=== PATIENT | female | born 1945 | race Caucasian/White ===

== ENCOUNTER 2020-09-01 10:07 | Outpatient (REF) | payer MEDICARE, OTHER, SELFPAY ==
--- NOTE | 2020-09-01 10:17 | MM_ITS ---
EXAMINATION: MM SCREENING DIGITAL BREAST TOMOSYNTHESIS, BILATERAL CLINICAL INFORMATION: Screening. Asymptomatic. The lifetime risk of breast cancer based on the Tyrer-Cuzick Model is 3%. COMPARISON: Mammography: 08/27/2019, 08/02/2018, 06/08/2016 TECHNIQUE: Digital breast tomosynthesis is performed in both the craniocaudal and mediolateral oblique views along with computer-aided detection (CAD). Synthesized 2D images are generated from the tomosynthesis. FINDINGS: There are scattered areas of fibroglandular density (ACR BI-RADS breast composition Category b). There are no significant masses, abnormal calcifications, or other abnormalities. Parenchymal pattern is similar to prior studies. The axilla and skin contours are unremarkable. MM/MM tomosynthesis screening BI IMPRESSION: No significant changes from prior studies. ASSESSMENT: BI-RADS 1: Negative RECOMMENDATION: Routine annual mammography screening. This patient's information was entered into a reminder system with a target due date for their next mammogram.
== END 2020-09-01 10:08 | disposition home or self-care (01) ==
LOC: HO.MAMMO 10:07
PROVIDERS: PCP Internal Medicine; Visit Provider Internal Medicine
DX: Z12.31 Encounter for screening mammogram for malignant neoplasm of breast (principal)
CPT/HCPCS: 77063; 77067

== ENCOUNTER 2020-10-29 09:27 | Outpatient (REF) | payer MEDICARE, OTHER, SELFPAY ==
--- NOTE | 2020-10-29 09:39 | MM_ITS ---
EXAMINATION: BONE DENSITOMETRY CLINICAL INDICATION: Menopausal female climacteric states. COMPARISON: This is the patient's baseline examination. TECHNIQUE: Using a [employer] Cardio DXA System (software version: 13.1) manufactured by [employer], dual-energy x-ray absorptiometry was performed of the lumbar spine and left hip. The images are of good technical quality. Summary results are attached. FINDINGS: AP SPINE L1-L2 (excluding L3 and L4): The data of L1-L4 has been changed to exclude the L3 and L4 vertebral bodies, because degenerative sclerosis at these levels may cause overestimation of lumbar spine density. BMD 0.749 g/cm2, Z-score -1.7, T-score -3.5, osteoporosis. LEFT FEMUR, NECK: BMD 0.908 g/cm2, Z-score 1.0, T-score -0.9, normal. LEFT FEMUR, TOTAL: BMD 0.873 g/cm2, Z-score 0.7, T-score -1.1, osteopenia. IDENTIFIED RISK FACTORS: Height loss, menopause. HISTORY OF FRACTURE: None listed. MEDICATIONS: Calcium supplements or multivitamin. MM/XR DEXA axial skeleton IMPRESSION: 1. DIAGNOSIS: Osteoporosis based on the lowest T-score value of -3.5 in the lumbar spine applying World Health Organization criteria. 2. 10-YEAR FRACTURE RISK PREDICTION, FRAX: Major osteoporotic fracture (clinical spine, forearm, hip or shoulder) 9.7%. Hip fracture 1.5%. 3. Treatment Recommendations: NOF guidelines recommend consideration for treatment in postmenopausal women and men age 50 and older presenting with the following: -A hip or vertebral (clinical or morphometric) fracture. -T-score less than or equal to -2.5 at the femoral neck or spine after appropriate evaluation to exclude secondary causes. -Low bone mass at the hip or spine and a 10-year fracture probability by FRAX of greater than or equal to 3% for hip fracture or greater than or equal to 20% for major osteoporotic fracture based on the [place] adapted WHO algorithm. 4. Other Recommendations: All treatment decisions require clinical judgment and consideration of individual patient factors, including patient preferences, comorbidities, previous drug use, risk factors not captured in the FRAX model (e.g. frailty, falls, vitamin D deficiency, increased bone turnover, interval significant decline in bone density) and possible under or overestimation of fracture risk by FRAX. Additional medical evaluation for secondary cause of low bone mineral density may be appropriate. FUTURE SCAN RECOMMENDATION: People with diagnosed cases of osteoporosis or at high risk for fracture should have regular bone mineral density tests. For patients eligible for Medicare, routine testing is allowed once every 2 years. The testing frequency can be increased to one year for patients who have rapidly progressing disease, those who are receiving or discontinuing medical therapy to restore bone mass, or have additional risk factors.
== END 2020-10-29 09:28 | disposition home or self-care (01) ==
LOC: HO.MAMMO 09:27
PROVIDERS: Visit Provider Registered Nurse
DX: M81.0 Age-related osteoporosis without current pathological fracture (principal)
CPT/HCPCS: 77080

== ENCOUNTER 2021-10-07 10:10 | Outpatient (REF) | payer MEDICARE, OTHER, SELFPAY ==
--- NOTE | ~2021-10-07 | MM_ITS ---
EXAMINATION: MM SCREENING DIGITAL BREAST TOMOSYNTHESIS, BILATERAL CLINICAL INFORMATION: Screening. Asymptomatic. The lifetime risk of breast cancer based on the Tyrer-Cuzick Model is 3%. COMPARISON: Mammography: September 01, 2020 and studies dating back to October 15, 2012 TECHNIQUE: Digital breast tomosynthesis is performed in both the craniocaudal and mediolateral oblique views along with computer-aided detection (CAD). Synthesized 2D images are generated from the tomosynthesis. FINDINGS: There are scattered areas of fibroglandular density (ACR BI-RADS breast composition Category b). There are no significant masses, abnormal calcifications, or other abnormalities. MM/MM tomosynthesis screening BI IMPRESSION: There are no significant changes from prior study. ASSESSMENT: BI-RADS 1: Negative RECOMMENDATION: Routine annual mammography screening. This patient's information was entered into a reminder system with a target due date for their next mammogram.
== END 2021-10-07 10:11 | disposition home or self-care (01) ==
LOC: HO.MAMMO 10:10
PROVIDERS: PCP Registered Nurse; Visit Provider Registered Nurse
DX: Z12.31 Encounter for screening mammogram for malignant neoplasm of breast (principal)
CPT/HCPCS: 77063; 77067

== ENCOUNTER 2022-10-11 09:20 | Outpatient (REF) | payer MEDICARE, OTHER, SELFPAY ==
--- NOTE | ~2022-10-11 | MM_ITS ---
EXAMINATION: MM SCREENING DIGITAL BREAST TOMOSYNTHESIS, BILATERAL CLINICAL INFORMATION: Screening. Asymptomatic. The lifetime risk of breast cancer based on the Tyrer-Cuzick Model is 3%. COMPARISON: Mammography: 10/07/2021 and studies dating back to 07/26/2010 TECHNIQUE: Digital breast tomosynthesis is performed in both the craniocaudal and mediolateral oblique views along with computer-aided detection (CAD). Synthesized 2D images are generated from the tomosynthesis. FINDINGS: There are scattered areas of fibroglandular density (ACR BI-RADS breast composition Category b). There is a stable parenchymal pattern to the left breast with no new abnormal dominant mass. Within the central right breast on craniocaudal view this asymmetric density which shows stability for greater than 2 years. No new abnormal dominant mass or suspicious grouping of microcalcifications is identified. MM/MM tomosynthesis screening BI IMPRESSION: No significant changes from prior exam. ASSESSMENT: BI-RADS 2: Benign RECOMMENDATION: Routine annual mammography screening. This patient's information was entered into a reminder system with a target due date for their next mammogram.
== END 2022-10-11 09:21 | disposition home or self-care (01) ==
LOC: HO.MAMMO 09:20
PROVIDERS: PCP Registered Nurse; Visit Provider Registered Nurse
DX: Z12.31 Encounter for screening mammogram for malignant neoplasm of breast (principal)
CPT/HCPCS: 77063; 77067

== ENCOUNTER 2023-10-13 09:07 | Outpatient (REF) | payer MEDICARE, OTHER, SELFPAY | END 2023-10-13 09:08 | disposition home or self-care (01) | LOC: HO.MAMMO 09:07 | PROVIDERS: PCP Pediatrics; Visit Provider Registered Nurse | DX: Z12.31 Encounter for screening mammogram for malignant neoplasm of breast (principal) | CPT/HCPCS: 77063; 77067 ==

== ENCOUNTER → 2023-10-13 09:30 | Outpatient (BNV) | payer MEDICARE, OTHER, SELFPAY | PROVIDERS: PCP Pediatrics; Visit Provider Radiology Diagnostic Radiology | DX: Z12.31 Encounter for screening mammogram for malignant neoplasm of breast (principal) | CPT/HCPCS: 77063; 77067 ==

== ENCOUNTER 2023-11-24 09:47 | Outpatient (REF) | payer MEDICARE, OTHER, SELFPAY ==
--- NOTE | ~2023-11-24 | MM_ITS ---
EXAMINATION: BONE DENSITOMETRY CLINICAL INDICATION: Age-related osteoporosis without current pathological fracture. COMPARISON: Baseline BD dated 10/29/2020. TECHNIQUE: Using a [employer] DXA System (software version: 13.1) manufactured by [employer], dual-energy x-ray absorptiometry was performed of the lumbar spine and left hip. The images are of good technical quality. Summary results are attached. FINDINGS: LEFT FEMUR, NECK: Current: BMD 0.904 g/cm2, Z-score 1.1, T-score -1.0, normal. Baseline: BMD 0.908 g/cm2. LEFT FEMUR, TOTAL: Current: BMD 0.807 g/cm2, Z-score 0.4, T-score -1.6, osteopenia, 7.6% decrease from baseline (<5% change is not significant). Baseline: BMD 0.873 g/cm2. AP SPINE L1-L2 (excluding L3 and L4): The data of L1-L4 has been changed to exclude the L3 and L4 vertebral bodies, because degenerative sclerosis at these levels may cause overestimation of lumbar spine density. Current: BMD 0.696 g/cm2, Z-score -2.0, T-score -3.9, osteoporosis, 7.1% decrease from baseline (<5% change is not significant). Baseline: BMD 0.749 g/cm2. IDENTIFIED RISK FACTORS: Menopause, height loss. HISTORY OF FRACTURE: None listed. MEDICATIONS: Calcium supplements or multivitamin, vitamin D. MM/XR DEXA axial skeleton IMPRESSION: 1. DIAGNOSIS: Osteoporosis based on the lowest T-score value of -3.9 in the lumbar spine applying World Health Organization criteria. 2. 10-YEAR FRACTURE RISK PREDICTION, FRAX: According to the guidelines, FRAX calculation should only be performed on patients in the osteopenia bone density category. Therefore, FRAX was not performed on this patient. 3. Treatment Recommendations: NOF guidelines recommend consideration for treatment in postmenopausal women and men age 50 and older presenting with the following: -A hip or vertebral (clinical or morphometric) fracture. -T-score less than or equal to -2.5 at the femoral neck or spine after appropriate evaluation to exclude secondary causes. -Low bone mass at the hip or spine and a 10-year fracture probability by FRAX of greater than or equal to 3% for hip fracture or greater than or equal to 20% for major osteoporotic fracture based on the [place] adapted WHO algorithm. 4. Other Recommendations: All treatment decisions require clinical judgment and consideration of individual patient factors, including patient preferences, comorbidities, previous drug use, risk factors not captured in the FRAX model (e.g. frailty, falls, vitamin D deficiency, increased bone turnover, interval significant decline in bone density) and possible under or overestimation of fracture risk by FRAX. Additional medical evaluation for secondary cause of low bone mineral density may be appropriate. FUTURE SCAN RECOMMENDATION: People with diagnosed cases of osteoporosis or at high risk for fracture should have regular bone mineral density tests. For patients eligible for Medicare, routine testing is allowed once every 2 years. The testing frequency can be increased to one year for patients who have rapidly progressing disease, those who are receiving or discontinuing medical therapy to restore bone mass, or have additional risk factors.
== END 2023-11-24 09:48 | disposition home or self-care (01) ==
LOC: HO.MAMMO 09:47
PROVIDERS: PCP Pediatrics; Visit Provider Pediatrics
DX: Z13.820 Encounter for screening for osteoporosis (principal); M81.0 Age-related osteoporosis without current pathological fracture; Z78.0 Asymptomatic menopausal state
CPT/HCPCS: 77080

== ENCOUNTER 2024-10-28 08:44 | Outpatient (REF) | payer MEDICARE, OTHER, SELFPAY ==
--- NOTE | ~2024-10-28 | MM_ITS ---
EXAMINATION: MM SCREENING DIGITAL BREAST TOMOSYNTHESIS, BILATERAL CLINICAL INFORMATION: Screening. Asymptomatic. COMPARISON: Mammography: Comparison is made with available priors TECHNIQUE: Digital breast mammography with tomosynthesis is performed in both the craniocaudal and mediolateral oblique views along with computer-aided detection (CAD). FINDINGS: There are scattered areas of fibroglandular density (ACR BI-RADS breast composition Category b). There are no significant masses, abnormal calcifications, or other abnormalities. MM/MM tomosynthesis screening BI IMPRESSION: No mammographic evidence of malignancy. ASSESSMENT: BI-RADS BI-RADS 1 - Negative RECOMMENDATION: Routine annual mammography screening. 1 year F/U This examination should not preclude the clinical evaluation of a suspicious palpable abnormality. This patient's information was entered into a reminder system with a target due date for their next mammogram. Electronically signed by: Brenda Guillen DO 11/03/2024 05:53 PM KORIN
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
== END 2024-10-28 08:45 | disposition home or self-care (01) ==
LOC: HO.MAMMO 08:44
PROVIDERS: PCP Pediatrics; Visit Provider Pediatrics
DX: Z12.31 Encounter for screening mammogram for malignant neoplasm of breast (principal)
CPT/HCPCS: 77063; 77067

== ENCOUNTER → 2024-10-28 09:00 | Outpatient (BNV) | payer MEDICARE, OTHER, SELFPAY | PROVIDERS: PCP Pediatrics; Visit Provider Internal Medicine | DX: Z12.31 Encounter for screening mammogram for malignant neoplasm of breast (principal) | CPT/HCPCS: 77063; 77067 ==

== ENCOUNTER 2024-11-01 09:28 | Outpatient (AMB) | payer MEDICARE, OTHER, SELFPAY ==
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
[2024-11-01 09:52] VITALS: BMI 25.0
== END 2024-11-01 10:11 | disposition home or self-care (01) ==
PROVIDERS: PCP Pediatrics
DX: S52.501A Unspecified fracture of the lower end of right radius, initial encounter for closed fracture (principal)
CPT/HCPCS: 99203

== ENCOUNTER 2024-11-01 09:28 | Outpatient (REF) | payer MEDICARE, OTHER, SELFPAY ==
--- NOTE | ~2024-11-01 | XR_ITS ---
CLINICAL HISTORY: M25.531 - Pain in right wrist 3 view right wrist Comparison: None Findings: Bones intact. No dislocations. There may be a remote impaction fracture of the distal radius. No significant arthritic change or erosions. No radiopaque foreign body. IMPRESSION: 1. No acute findings This document has been electronically signed by: Chriss Lynch MD on 11/04/2024 12:14:36
== END 2024-11-01 09:29 | disposition home or self-care (01) ==
LOC: HO.HOSX 09:28
PROVIDERS: PCP Pediatrics
DX: M25.531 Pain in right wrist (principal); S52.501D Unspecified fracture of the lower end of right radius, subsequent encounter for closed fracture with routine healing
CPT/HCPCS: 73110; 99202

== ENCOUNTER 2024-11-08 08:21 | Outpatient (REF) | payer MEDICARE, OTHER, SELFPAY ==
--- NOTE | ~2024-11-08 | XR_ITS ---
EXAMINATION: XR WRIST 3 OR MORE VIEWS RIGHT HISTORY: M25.531 - Pain in right wrist COMPARISON: Comparison is made with the prior examination dated 11/01/2024. FINDINGS: Three views of the right wrist are submitted. The bones are osteopenic. Again seen is a transverse fracture of the radial metaphysis. Fracture line is less well visualized, consistent with healing. The joint spaces are preserved. The soft tissues are unremarkable. XR/XR wrist RT min 3V IMPRESSION: Healing transverse fracture of the distal radius. Electronically signed by: Aleksandar Sargent MD 11/11/2024 10:45 AM KORIN
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
== END 2024-11-08 08:22 | disposition home or self-care (01) ==
LOC: HO.HOSX 08:21
DX: M25.531 Pain in right wrist (principal); S52.501A Unspecified fracture of the lower end of right radius, initial encounter for closed fracture
CPT/HCPCS: 73110; 99212

== ENCOUNTER 2024-11-08 09:22 | Outpatient (AMB) | payer MEDICARE, OTHER, SELFPAY ==
--- NOTE | 2024-11-08 09:32 | A.OFFVIS_ITS ---
Vital Signs 11/08/24 09:37 Height 5 ft 5 in Weight 150 lb BMI 25.0 Intake Visit Reasons: OV RT distal radius fx DOI 10/11/24 Intake Note: Aziza is a 79 year old right hand dominant female who presents today for follow up status post right distal radius fracture, DOI: 10/11/2024. Patient reports he wrist feels pretty good. She expresses certain spots have some discomfort where her fracture was that lets her know it is still there. She says this happens randomly and is unable to say exactly what causes the discomfort. Allergies No Known Allergies Allergy (Verified 11/08/24 09:36) HPI HPI OV RT distal radius fx DOI 10/11/24: Details: Aziza is a 79 year old right hand dominant female who presents today for follow up status post right distal radius fracture, DOI: 10/11/2024. Patient reports he wrist feels pretty good. She expresses certain spots have some discomfort where her fracture was that lets her know it is still there. She says this happens randomly and is unable to say exactly what causes the discomfort. [facility] Social History Patient Tobacco Use Status: Former Tobacco user Current occupational status: retired Current occupation: rt hand Review of Systems Const All systems reviewed & are unremarkable except as noted in HPI and below Physical Exam Vital Signs: BMI result Body Mass Index 25.0 Extrem Other: Patient is alert, oriented, and in no acute distress. Neuro: Normal sensation of the tips of all digits of the right hand at this time Vascular: Cap refill brisk Pain: No tenderness to palpation about the right wrist No pain in the right wrist with range of motion of the right hand ROM: Patient is able to make a closed fist and extend all digits of the right hand fully and without difficulty Skin: No lacerations or abrasions. General: No ecchymosis, erythema, or evidence of infection. Psych: Appears grossly normal Affect normal Attitude cooperative Results Reviewed Results Reviewed: X-rays obtained in the office today and independently reviewed by me, Paulie Pepe PA-C, demonstrate minimally displaced fracture of the right distal radius with evidence of interval bony healing. Assessment & Plan Assessment & Plan (1) Distal radius fracture, right: Code(s): S52.501A - Unspecified fracture of the lower end of right radius, initial encounter for closed fracture Category: Medical Plan 1. Minimally displaced right distal radius fracture Date of injury 10/11/2024 Patient appears to be recovering well from her injury Patient is educated about the typical recovery course At this time, patient was informed that she no longer needs to wear her Velcro wrist splint like a cast, and only needs to wear it with daytime activities. Patient is educated that when at home and relaxing, she can remove herself from the splint and work on range of motion of the right hand and wrist Patient is educated that she will likely require a referral to occupational therapy if she is still experiencing any decreased range of motion at next visit Patient was amenable to this plan Patient will follow-up in 4 weeks with repeat x-rays, sooner with any acute concerns Orders: Orders XR wrist RT min 3V Today M25.531 - Pain in right wrist Coding Level of Care Code Global (64407) Diagnoses Distal radius fracture, right S52.501A
[2024-11-08 09:37] VITALS: BMI 25.0
== END 2024-11-08 09:55 | disposition home or self-care (01) ==
PROVIDERS: PCP Pediatrics
DX: S52.501D Unspecified fracture of the lower end of right radius, subsequent encounter for closed fracture with routine healing (principal)
CPT/HCPCS: 99213

== ENCOUNTER 2024-12-06 08:20 | Outpatient (REF) | payer MEDICARE, OTHER, SELFPAY ==
--- NOTE | ~2024-12-06 | XR_ITS ---
EXAMINATION: XR WRIST 3 OR MORE VIEWS RIGHT HISTORY: M25.531 - Pain in right wrist COMPARISON: Comparison is made with the prior examination dated 11/08/2024. FINDINGS: Three views of the right wrist are submitted. Osseous mineralization is normal. Again seen is a transverse fracture of the distal radial metaphysis. There is slightly greater sclerosis on the current study and the fracture line is slightly less well visualized, consistent with healing. The joint spaces are preserved. The soft tissues are unremarkable. XR/XR wrist RT min 3V IMPRESSION: Healing transverse fracture of the distal radius. Electronically signed by: Aleksandar Sargent MD 12/06/2024 09:36 AM EST
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
== END 2024-12-06 08:21 | disposition home or self-care (01) ==
LOC: HO.HOSX 08:20
DX: S52.501D Unspecified fracture of the lower end of right radius, subsequent encounter for closed fracture with routine healing (principal)
CPT/HCPCS: 73110

== ENCOUNTER 2024-12-06 09:21 | Outpatient (AMB) | payer MEDICARE, OTHER, SELFPAY ==
--- NOTE | 2024-12-06 09:27 | MHC.OFFVIS ---
Intake Visit Reasons: RTdistal radius fx DOI 10/11/24-w/xray ROM check Intake Note: Aziza is a 79 year old right hand dominant female who presents today for a post operative range of motion check s/p right distal radius fracture, DOI: 10/11/2024. At her last visit she was placed in a Velcro wrist brace and instructed to remove for ROM exercises. Patient reports she is doing well, taking Aleve occasionally for pain. Allergies No Known Allergies Allergy (Verified 11/08/24 09:36) HPI HPI RTdistal radius fx DOI 10/11/24-w/xray ROM check: Details: Aziza is a 79 year old right hand dominant female who presents today for a post operative range of motion check s/p right distal radius fracture, DOI: 10/11/2024. At her last visit she was placed in a Velcro wrist brace and instructed to remove for ROM exercises. Patient reports she is doing well, taking Aleve occasionally for pain. [facility] Social History Patient Tobacco Use Status: Former Tobacco user Current occupational status: retired Current occupation: rt hand Review of Systems Const All systems reviewed & are unremarkable except as noted in HPI and below Physical Exam Extrem Other: Patient is alert, oriented, and in no acute distress. Neuro: Normal sensation of the tips of all digits of the right hand at this time Vascular: Cap refill brisk Pain: No tenderness to palpation about the right wrist No pain in the right wrist with range of motion of the right hand ROM: Patient is able to make a closed fist and extend all digits of the right hand fully and without difficulty Skin: No lacerations or abrasions. General: No ecchymosis, erythema, or evidence of infection. Psych: Appears grossly normal Affect normal Attitude cooperative Results Reviewed Results Reviewed: X-rays obtained in the office today and independently reviewed by me, Paulie Pepe PA-C, demonstrate minimally displaced fracture of the right distal radius with evidence of interval bony healing. Assessment & Plan Assessment & Plan (1) Distal radius fracture, right: Code(s): S52.501A - Unspecified fracture of the lower end of right radius, initial encounter for closed fracture Category: Medical Plan 1. Minimally displaced right distal radius fracture Date of injury 10/11/2024 Patient appears to be recovering well from her injury Patient is educated about the typical recovery course At this time, patient was informed that she no longer needs to wear her Velcro wrist splint like a cast, and only needs to wear it with high-risk situations such as walking on ice Patient is educated that when at home and relaxing, she can remove herself from the splint and work on range of motion of the right hand and wrist No OT necessary at this time, as her range of motion is normal Patient was amenable to this plan Patient will follow-up as needed with any acute concerns Orders: Orders XR wrist RT min 3V Today M25.531 - Pain in right wrist Coding Level of Care Code Global (61076) Diagnoses Distal radius fracture, right S52.501A
== END 2024-12-06 09:57 | disposition home or self-care (01) ==
PROVIDERS: PCP Pediatrics
DX: S52.501A Unspecified fracture of the lower end of right radius, initial encounter for closed fracture (principal)
CPT/HCPCS: 99213

== ENCOUNTER → 2024-12-06 09:24 | Outpatient (BNV) | payer MEDICARE, OTHER, SELFPAY | PROVIDERS: Visit Provider Radiology Diagnostic Radiology | DX: S52.592D Other fractures of lower end of left radius, subsequent encounter for closed fracture with routine healing (principal) | CPT/HCPCS: 73110 ==

== ENCOUNTER 2025-02-25 14:55 | Outpatient (AMB) | payer MEDICARE, OTHER, SELFPAY ==
[2025-02-25 15:21] VITALS: BMI 25.0
--- NOTE | 2025-02-25 15:21 | A.OFFVIS_ITS ---
Vital Signs 02/25/25 15:21 Height 5 ft 5 in Weight 150 lb BMI 25.0 Intake Visit Reasons: Newprob-RT thumb pain/limited ROM Intake Note: right hand dominant presents today for a new problem visit for her right thumb. States she has no pain just aches at times. She has stiffness in her IP joint that started January. States she was folding a walker, felt pain and aches and now she is not able to move thumb. Denies numbness or tingling . Patient mentioned her right ring finger locks at times that started about 2 yrs ago. Allergies No Known Allergies Allergy (Verified 02/25/25 15:25) HPI HPI Newprob-RT thumb pain/limited ROM: Details: Aziza is a 79 year old right hand dominant woman who presents with complaints of right thumb pierre. She complains of ~2 weeks right thumb pain & stiffness. She says she was folding her walker on 02/12/25 when she felt pain & weakness in her thumb. She has had difficulty moving her thumb since. She notes that she did have some swelling over the dorsal radial aspect of her hand and wrist shortly before this painful episode. It did resolve after the episode. She also complains of occasional locking of her right middle finger, which she says has been present for ~2 years. She has a hx of a right distal radius fracture, DOI: 10/11/24. This was managed in a cast and she says she is doing well. She says her partner has Parkinson's disease and she is often responsible for helping manage his care. [facility]LY [facility] Social History Patient Tobacco Use Status: Former Tobacco user Current occupational status: retired Current occupation: rt hand Review of Systems Const All systems reviewed & are unremarkable except as noted in HPI and below Physical Exam Vital Signs: BMI result Body Mass Index 25.0 Const General: no acute distress and alert Orientation/consciousness: patient oriented x3 Neuro General: patient oriented x3 Extrem Other: Evaluation of Right Upper Extremity: The patient is alert, oriented, and in no acute distress Neuro: Median, Ulnar, Radial nerves motor and sensory intact and sensation is normal to the tips of all digits Vascular: Cap refill brisk ROM: Pos tabletop test, unable to lift her thumb off the table when her hand is placed flat Inability to actively extend thumb IP joint Cannot actively hold her thumb IP joint extended Radiographs: 3 views of the right wrist from 12/16/24 were reviewed by me today in clinic. They show no fractures or dislocations. She has some arthritic changes to her fingers, including her thumb IP joint, and some early basal joint arthritis. Her distal radius fracture appeared to be well on its way to healing at that jessica e. Psych Appearance: grossly normal Affect: normal affect Attitude: cooperative Assessment & Plan Assessment & Plan (1) Rupture of tendon of right hand: Comment: EPL tendon Code(s): S66.911A - Strain of unspecified muscle, fascia and tendon at wrist and hand level, right hand, initial encounter Category: Medical Plan Assessment & Plan: 1. Right thumb EPL tendon rupture DOI: 02/12/25 I educated her about this condition I discussed operative and non-operative treatment options The patient would like to proceed with surgery The risks and benefits of operative treatment were discussed with the patient and the patient wishes to proceed with surgery. These risks include, but are not limited to risk of damage to blood vessels, nerves, tendons, infection, recurrence, incomplete relief of preoperative symptoms, persistent pain, possible need for further surgery and the risks associated with regional blocks and anesthesia. The plan is to take the patient to the operating room sometime in the next few weeks for the following procedures: 1. Right EIP to EPL tendon transfer, under general All of the preoperative paperwork including the consent was reviewed today. All the patient's questions were answered. The patient understands that they will be contacted by our formulation technician soon to schedule this procedure She denies Diabetes, blood thinners, asthma, heart, lung, kidney issues 2. Right middle finger trigger finger No complaints today 3. Right distal radius fracture, S/P fall DOI: 10/11/24 This was managed conservatively in a cast, and has healed well No complaints today Scribed for Jackie Shultz MD by Can [facility] program medical director, on 02/25/25 at 3:45 PM, EST. Coding Level of Care Code Est Pt Level 4 (27574) Diagnoses Rupture of tendon of right hand S66.911A
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
== END 2025-02-25 17:12 | disposition home or self-care (01) ==
LOC: HO.HOS 14:55
PROVIDERS: Visit Provider Orthopaedic Surgery
DX: S66.911A Strain of unspecified muscle, fascia and tendon at wrist and hand level, right hand, initial encounter (principal)
CPT/HCPCS: 99214

== ENCOUNTER → 2025-02-25 14:55 | Outpatient (BNVA) | payer MEDICARE, OTHER, SELFPAY | PROVIDERS: Visit Provider Orthopaedic Surgery | DX: S66.911A Strain of unspecified muscle, fascia and tendon at wrist and hand level, right hand, initial encounter (principal) | CPT/HCPCS: 99212 ==